=== PATIENT | female | born 1965 | race Caucasian/White ===

== ENCOUNTER → 2016-05-20 | Outpatient (CLI) | payer OTHER ==
[2016-05-20 12:13] LABS: BACTERIA, URINE FEW /hpf; BLOOD, URINE TRACE (NEG); GLUCOSE,URINE NEG (NEG); HYALINE CAST, URINE 1 /lpf (RARE); KETONE, URINE NEG (NEG); MUCUS URINE FEW /lpf (OCC); NITRITE,URINE NEG (NEG); SQUAMOUS EPITHELIAL CELL URINE 3 /hpf (0-5); URINE COLOR YELLOW (YELLW/STRAW)
[2016-05-20 12:17] LABS: HEMATOCRIT 39.8 % (35.0-46.0); MEAN CORPUSCULAR HEMOGLOBIN 29.1 PG (27.0-34.0); MEAN CORPUSCULAR HGB CONC 32.7 % (32.0-36.0); PLATELET COUNT 133 TH/MM3 (150-450); RED BLOOD COUNT 4.48 MIL/MM3 (4.00-5.30); RED CELL DISTRIBUTION WIDTH 13.7 % (11.6-17.2); REVIEW FLAG FINAL; WHITE BLOOD COUNT 5.2 TH/MM3 (4.0-11.0)
[2016-05-20 12:30] LABS: ANION GAP 11 MEQ/L (5-15); AST (GOT) 26 U/L (15-37); BICARBONATE 23.5 MEQ/L (21.0-32.0); BLOOD UREA NITROGEN 11 MG/DL (7-18); CHLORIDE 108 MEQ/L (98-107); GLOMERULAR FILTRATION RATE 105 ML/MIN (>89); GLUCOSE,FASTING 167 MG/DL (74-99); POTASSIUM 3.8 MEQ/L (3.5-5.1); SODIUM (NA) 142 MEQ/L (136-145)
[2016-05-20 12:39] LABS: ALKALINE PHOSPHATASE 97 U/L (45-117); ALT (GPT) 52 U/L (10-53); FOLLICLE STIMULATING HORMONE 41.9 mIU/mL; HDL CHOLESTEROL 54.7 MG/DL (40.0-60.0); INDIRECT BILIRUBIN 0.3 MG/DL (0.0-0.8); LDL CHOLESTEROL 131 MG/DL (0-99); LUTEINIZING HORMONE 22.2 mIU/mL; TOTAL BILIRUBIN ADULT 0.4 MG/DL (0.2-1.0)
[2016-05-20 12:41] LABS: CREATINE KINASE 92 U/L (26-192)
[2016-05-20 16:16] LABS: HEMOGLOBIN A1a 0.8 %; HEMOGLOBIN A1b 1.9 %; HEMOGLOBIN Ao 84.8 %; HEMOGLOBIN LA1C 2.2 %; HEMOGLOBIN P3 3.6 %
[2016-05-23 07:55] LABS: HIV RNA COPIES LESS THAN 20.0 (()); HIV RNA LOG COPIES LESS THAN 1.30 (())
[2016-05-23 23:55] LABS: CD4/CD8 RATIO 1.2 (0.86-5.00)
== END ==
LOC: CLAB 11:26
PROVIDERS: ATTEND Specialist
DX: B20 Human immunodeficiency virus [HIV] disease (principal); R73.09 Other abnormal glucose; E78.5 Hyperlipidemia, unspecified; Z79.899 Other long term (current) drug therapy
CPT/HCPCS: 36415; 80048; 80061; 80076; 81001; 82306; 82550; 83001; 83002; 83036; 83525; 84443; 84681; 85027; 86355; 86357; 86359; 86360; 87086; 87536

== ENCOUNTER → 2016-12-16 | Outpatient (CLI) | payer OTHER ==
[2016-12-16 13:28] LABS: BLOOD, URINE TRACE (NEG); GLUCOSE,URINE NEG (NEG); HYALINE CAST, URINE 3 /lpf (RARE); KETONE, URINE NEG (NEG); NITRITE,URINE NEG (NEG); SQUAMOUS EPITHELIAL CELL URINE 2 /hpf (0-5); URINE COLOR YELLOW (YELLW/STRAW)
[2016-12-16 13:30] LABS: HEMATOCRIT 40.6 % (35.0-46.0); MEAN CELL VOLUME 89.6 FL (80.0-100.0); MEAN CORPUSCULAR HEMOGLOBIN 29.8 PG (27.0-34.0); MEAN CORPUSCULAR HGB CONC 33.2 % (32.0-36.0); PLATELET COUNT 133 TH/MM3 (150-450); RED BLOOD COUNT 4.53 MIL/MM3 (4.00-5.30); RED CELL DISTRIBUTION WIDTH 14.6 % (11.6-17.2); REVIEW FLAG FINAL; WHITE BLOOD COUNT 4.9 TH/MM3 (4.0-11.0)
[2016-12-16 13:44] LABS: ALT (GPT) 30 U/L (10-53); ANION GAP 7 MEQ/L (5-15); AST (GOT) 18 U/L (15-37); BICARBONATE 26.4 MEQ/L (21.0-32.0); BLOOD UREA NITROGEN 11 MG/DL (7-18); CHLORIDE 109 MEQ/L (98-107); GLOMERULAR FILTRATION RATE 111 ML/MIN (>89); GLUCOSE,FASTING 120 MG/DL (74-99); POTASSIUM 3.9 MEQ/L (3.5-5.1); SODIUM (NA) 142 MEQ/L (136-145)
[2016-12-16 13:53] LABS: ALKALINE PHOSPHATASE 87 U/L (45-117); HDL CHOLESTEROL 55.5 MG/DL (40.0-60.0); INDIRECT BILIRUBIN 0.3 MG/DL (0.0-0.8); LDL CHOLESTEROL 172 MG/DL (0-99); TOTAL BILIRUBIN ADULT 0.4 MG/DL (0.2-1.0)
[2016-12-16 13:54] LABS: CREATINE KINASE 64 U/L (26-192)
[2016-12-16 17:36] LABS: HEMOGLOBIN A1a 0.8 %; HEMOGLOBIN A1b 1.8 %; HEMOGLOBIN Ao 85.8 %; HEMOGLOBIN P3 3.4 %
[2016-12-18 07:52] LABS: CD4/CD8 RATIO 1.1 (0.86-5.00)
[2016-12-18 19:52] LABS: HIV RNA COPIES LESS THAN 20.0 (<20); HIV RNA LOG COPIES LESS THAN 1.30 (<1.30)
== END ==
LOC: CLAB 12:39
PROVIDERS: ATTEND Specialist
DX: B20 Human immunodeficiency virus [HIV] disease (principal); E88.1 Lipodystrophy, not elsewhere classified; E78.5 Hyperlipidemia, unspecified; D69.6 Thrombocytopenia, unspecified; Z79.899 Other long term (current) drug therapy
CPT/HCPCS: 36415; 80048; 80061; 80076; 81001; 82550; 82985; 83036; 83525; 84443; 84681; 85027; 86355; 86357; 86359; 86360; 87536

== ENCOUNTER → 2016-12-25 | Outpatient (CLI) | payer OTHER ==
[2016-12-25 09:47] LABS: BACTERIA, URINE RARE /hpf; BLOOD, URINE TRACE (NEG); GLUCOSE,URINE NEG (NEG); HYALINE CAST, URINE 1 /lpf (RARE); KETONE, URINE NEG (NEG); MUCUS URINE FEW /lpf (OCC); NITRITE,URINE NEG (NEG); SQUAMOUS EPITHELIAL CELL URINE 7 /hpf (0-5); TRANSITIONAL EPI CELLS, URINE <1 /hpf; URINE COLOR YELLOW (YELLW/STRAW)
[2016-12-25 09:52] LABS: COMMENT (UR) CULTURE INDICATED; CULTURE IF INDICATED CULTURE INDICATED
== END ==
LOC: CLAB 09:18
PROVIDERS: ATTEND Specialist
DX: E78.5 Hyperlipidemia, unspecified (principal); B20 Human immunodeficiency virus [HIV] disease; R73.02 Impaired glucose tolerance (oral); E88.1 Lipodystrophy, not elsewhere classified; R82.90 Unspecified abnormal findings in urine
CPT/HCPCS: 81001; 87086

== ENCOUNTER → 2017-04-02 | Outpatient (CLI) | payer OTHER ==
[2017-04-02 11:59] LABS: HEMATOCRIT 38.5 % (35.0-46.0); MEAN CELL VOLUME 88.4 FL (80.0-100.0); MEAN CORPUSCULAR HEMOGLOBIN 29.5 PG (27.0-34.0); MEAN CORPUSCULAR HGB CONC 33.4 % (32.0-36.0); PLATELET COUNT 134 TH/MM3 (150-450); RED BLOOD COUNT 4.36 MIL/MM3 (4.00-5.30); RED CELL DISTRIBUTION WIDTH 15.3 % (11.6-17.2); REVIEW FLAG FINAL; WHITE BLOOD COUNT 5.9 TH/MM3 (4.0-11.0)
[2017-04-02 12:06] LABS: BACTERIA, URINE MOD /hpf; BLOOD, URINE SMALL (NEG); GLUCOSE,URINE NEG (NEG); HYALINE CAST, URINE 1 /lpf (RARE); KETONE, URINE NEG (NEG); MUCUS URINE FEW /lpf (OCC); NITRITE,URINE NEG (NEG); SQUAMOUS EPITHELIAL CELL URINE 10 /hpf (0-5); URINE COLOR LIGHT-YELLOW (YELLW/STRAW)
[2017-04-02 12:23] LABS: BICARBONATE 25.7 MEQ/L (21.0-32.0); POTASSIUM 3.8 MEQ/L (3.5-5.1)
[2017-04-02 12:31] LABS: MICRO ALBUMIN RANDOM URINE RAW 15.6 MG/L (0.0-30.0)
[2017-04-02 12:35] LABS: HDL CHOLESTEROL 64.4 MG/DL (40.0-60.0); INDIRECT BILIRUBIN 0.3 MG/DL (0.0-0.8); TOTAL BILIRUBIN ADULT 0.4 MG/DL (0.2-1.0)
[2017-04-04 17:51] LABS: HIV RNA COPIES LESS THAN 20.0 (<20); HIV RNA LOG COPIES LESS THAN 1.30 (<1.30)
== END ==
LOC: CLAB 11:08
PROVIDERS: ATTEND Specialist
DX: E78.5 Hyperlipidemia, unspecified (principal); N39.0 Urinary tract infection, site not specified; B20 Human immunodeficiency virus [HIV] disease; Z79.899 Other long term (current) drug therapy
CPT/HCPCS: 36415; 80048; 80061; 80076; 81001; 82043; 84443; 85027; 87086; 87536